=== PATIENT | male | born 1970 | race Caucasian/White ===

== ENCOUNTER 2017-09-29 19:02 | Emergency (ER) | payer OTHER ==
--- NOTE | 2017-09-29 19:18 | EDM.PDOC ---
ED HPI GENERAL MEDICAL PROBLEM - General Chief Complaint: Chest Pain Stated Complaint: [id number] CHEST PAIN Time Seen by Provider: 09/29/17 19:15 Source of Information: Reports: Patient History Limitations: Reports: No Limitations - History of Present Illness INITIAL COMMENTS - FREE TEXT/NARRATIVE: had same situation 3 weeks ago but pain didn't last this long. was at [employer] ate [employer] started hick-ups follow by sharp pain right upper chest area. presently pain gone. work-out alot and tries to be healthy. Mid-Sternal Chest Pain Score (Numeric/FACES): 8 - Related Data Allergies Allergy/AdvReac Type Severity Reaction Status Date / Time cat dander Allergy Sneezing Verified 09/29/17 19:16 ragweed pollen Allergy Sneezing Verified 09/29/17 19:16 Home Meds: Home Meds Cetirizine HCl [Zyrtec] 10 mg PO BID PRN 09/29/17 [History] Past Medical History - Past Health History Medical/Surgical History: Denies Medical/Surgical History Social & Family History - Tobacco Use Smoking Status *Q: Never Smoker Second Hand Smoke Exposure: No - Recreational Drug Use Recreational Drug Use: No ED ROS GENERAL - Review of Systems Review Of Systems: ROS reveals no pertinent complaints other than HPI. ED EXAM, GENERAL - Physical Exam Exam: See Below Exam Limited By: No Limitations General Appearance: Alert, WD/WN, Anxious Ears: Hearing Grossly Normal Throat/Mouth: Normal Voice, No Airway Compromise Head: Atraumatic Neck: Non-Tender, Full Range of Motion Respiratory/Chest: No Respiratory Distress, Lungs Clear, Normal Breath Sounds Cardiovascular: Regular Rate, Rhythm GI/Abdominal: Soft, Non-Tender Neurological: Alert, Oriented, Normal Cognition, Normal Gait, No Motor/Sensory Deficits Psychiatric: Anxious Skin Exam: Warm, Dry, Normal Color Lymphatic: No Adenopathy Course - Vital Signs Last Recorded V/S: Last Vital Signs Temp 36.4 C 09/29/17 19:03 Pulse 87 09/29/17 19:03 Resp 18 09/29/17 19:03 BP 126/92 H 09/29/17 19:03 Pulse Ox 100 09/29/17 19:03 - Orders/Labs/Meds Orders: Active Orders 24 hr Category Date Time Status EKG 12 Lead [EKG Documentation Completion] [RC] STAT Care 09/29/17 19:13 Active Labs: Laboratory Tests 09/29/17 09/29/17 09/29/17 Range/Units 19:01 19:01 19:01 WBC 11.9 H (5.0-10.0) 10^3/uL RBC 5.65 (4.6-6.2) 10^6/uL Hgb 16.4 (14.0-18.0) g/dL Hct 47.0 (40.0-54.0) % MCV 83.2 (80-100) fL MCH 29.0 (27.0-34.0) pg MCHC 34.9 (33.0-35.0) g/dL Plt Count 237 (150-450) 10^3/uL Neut % (Auto) 46.6 (42.2-75.2) % Lymph % (Auto) 42.2 (20.5-50.1) % [place] % (Auto) 8.6 H (2-8) % Eos % (Auto) 2.1 (1.0-3.0) % Baso % (Auto) 0.5 (0.0-1.0) % D-Dimer, Quantitative < 100 (0-400) ng/mL Sodium 139 (135-145) mmol/L Potassium 3.4 L (3.6-5.0) mmol/L Chloride 103 (101-111) mmol/L Carbon Dioxide 27.0 (21.0-31.0) mmol/L Anion Gap 12.4 BUN 20 H (7-18) mg/dL Creatinine 1.2 (0.6-1.3) mg/dL Est Cr Clr Drug Dosing 79.42 mL/min Estimated GFR (MDRD) > 60 BUN/Creatinine Ratio 16.66 Glucose 106 H (74-105) mg/dL Calcium 9.4 (8.4-10.2) mg/dl Total Bilirubin 0.9 (0.2-1.0) mg/dL AST 29 (10-42) IU/L ALT 21 (10-60) IU/L Alkaline Phosphatase 49 (42-121) IU/L Troponin I < 0.02 (0.00-0.02) ng/ml Total Protein 7.2 (6.7-8.2) g/dl Albumin 4.7 (3.2-5.5) g/dl Globulin 2.5 Albumin/Globulin Ratio 1.88 Meds: Medications Discontinued Medications Generic Name Dose Route Start Last Admin Trade Name Simeon PRN Reason Stop Dose Admin Sodium Chloride 1,000 mls @ 500 mls/hr 09/29/17 20:00 Normal Saline IV ASDIRECTED JANAE - Re-Assessments/Exams Free Text/Narrative Re-Assessment/Exam: 09/29/17 20:07 results discussed with pt who remains pain free. Departure - Departure Time of Disposition: 20:07 Disposition: Home, Self-Care 01 Condition: Good Clinical Impression: Atypical chest pain, Esophagitis Instructions: Food Choices for Gastroesophageal Reflux Disease, Adult Referrals: John Hargrove MD [Primary Care Provider] - Forms: ED Department Discharge Additional Instructions: 1) rest and avoid vigorous activity next 24 hours 2) must return if there is any change or concern - My Orders Last 24 Hours: My Active Orders 09/29/17 19:13 EKG 12 Lead [EKG Documentation Completion] [RC] STAT - Assessment/Plan Last 24 Hours: My Active Orders 09/29/17 19:13 EKG 12 Lead [EKG Documentation Completion] [RC] STAT
[2017-09-29 19:30] LABS: SODIUM,NA 139 mmol/L (135-145)
[2017-09-29 19:31] LABS: CHLORIDE,CL 103 mmol/L (101-111)
[2017-09-29] MEDS ORDERED: Sodium Chloride 0.9% 1,000 ML IV SCH (20:00)
--- NOTE | 2017-10-01 11:11 | EKG ---
09/29/2017 - PHANI CUTLER - TIME: 6:57 p.m. EKG showed a heart rate of 65 beats per minute, sinus rhythm. [facility] /[id number]
== END 2017-09-29 20:12 | disposition home or self-care (01) ==
LOC: DL.ED 19:02
DX: K20.9 Esophagitis, unspecified (principal); Z91.048 Other nonmedicinal substance allergy status
CPT/HCPCS: 36415; 80053; 84484; 85025; 85379; 93005; 99285